=== PATIENT | female | born 1955 | race Asian ===

== ENCOUNTER 2023-01-22 08:03 | Day surgery (SDC) | payer OTHER ==
[2023-01-20 12:12] VITALS: BMI 29.9
[2023-01-22 09:19] VITALS: RESP 18; TEMP 97.9
[2023-01-22 09:21] VITALS: BP 91/55; PULSE 76
== END 2023-01-22 09:35 | disposition home or self-care (01) ==
LOC: FASU-ENDO 08:03
PROVIDERS: ATTEND Internal Medicine Gastroenterology
PROC: 0DBN8ZX Excision of Sigmoid Colon, Via Natural or Artificial Opening Endoscopic, Diagnostic (ICD-10-PCS; principal; 2023-01-22 08:41)
DX: Z12.11 Encounter for screening for malignant neoplasm of colon (principal); K57.30 Diverticulosis of large intestine without perforation or abscess without bleeding; K63.89 Other specified diseases of intestine
CPT/HCPCS: 88305-TC